=== PATIENT | female | born 1980 | race Two or more races ===

== ENCOUNTER 2024-10-15 08:54 | Outpatient (AMB) | payer BC, SELFPAY ==
[2024-10-15 09:13] VITALS: BP 123/82; PULSE 59; RESP 18; TEMP 36.3; O2SAT 98; BMI 25.8
--- NOTE | 2024-10-15 09:13 | GSCOFFNT_ITS ---
Vital Signs - [facility] 10/15/24 09:13 Height 1.65 m Height Method Stated Weight 70.335 kg Weight Measurement Method Standing Scale BMI 25.8 BP 123/82 Blood Pressure Source Automatic Cuff Blood Pressure Location Left Upper Arm Position Sitting Respiration 18 Pulse 59 L Pulse Source Monitor Temp 97.3 F Temp Source Temporal Artery Scan Pulse Oximetry (%) 98 Oxygen Delivery Method Room Air Med/Allergies Allergies & Medications Allergies acetaminophen (From Vicodin) Allergy (Verified 10/15/24 09:13) hydrocodone (From Vicodin) Allergy (Verified 10/15/24 09:13) Medication Reconciliation albuterol 90 mcg/actuation aerosol inhaler mcg inhalation 10/15/24 [History Confirmed 10/15/24] MA Intake Visit Data Collection New Patient or Established: Established Patient (seen at [facility] within 3 years) Seen by Clinical Staff ONLY (RN/ABHAY): No Reason for Visit:: COLON SX FOLLOW UP Pain Present Currently: No PCP or OBGYN visit in last 3 months: Yes Hx Now: No Do You Feel Safe at Home: Yes Authorities Contacted: N/A Smoking Status Smoking Status: Never smoker Immunization / Flu Flu Vaccine in the Last 12 Months: Yes Flu Vaccine Exclusion Criteria: Already Received Past Medical History Past Medical History RESPIRATORY: Negative Smoking or Smoking Exposure Social History SMOKING STATUS: Smoking status: Never smoker Past Medical History Comments PMH COMMENT: COLONOSCOPY 08/2023 HPI HPI Narrative 44F referred for follow up of AIN. Per her referral pt underwent excision of an anal lesion in 2022 which showed AIN II, and she had a follow up anal pap 08/2023 which showed benign squamous cells and few columnar cells, no dysplasia. She is unable to follow up with the same provider because they no longer accept her insurance. Pt also underwent colonoscopy in 2021 which was negative aside from hemorrhoids. She feels well overall, states her BMs are soft and regular, and she denies any perianal pain, bleeding or itching, and also denies any anorexia or unintentional weight loss PMH: Mild asthma, AIN II PSHx: Excisional biopsy of anal lesion 01/2023, laparoscopic hiatal hernia repair, partial hysterectomy for bleeding/cyst Meds: MVI, albuterol PRN Allergies: Vicodin Family hx: Paternal aunt had colon CA, no known cervical or anal CA Social hx: Nonsmoker ROS Review of Systems Systems Reviewed: All systems reviewed, normal except as documented Objective/Exam General General Appearance: alert, cooperative and well groomed Resp Respiratory exam: Absent respiratory distress Rectal Rectal exam: Present hemorrhoids (small external hemorrhoid, no other abnormalities on inspection. Normal JAMES, anoscopy negative for gross lesions) Assessment & Plan Diagnosis / Problem List (1) AIN grade II: Status: Acute Assessment & Plan: 44F found to have AIN grade II on excision of anal lesion 2022, followed by negative anal pap smear 08/2023, here for follow up with no current symptoms and no palpable/visible lesions on anoscopy. I explained to pt that I unfortunately do not have the equipment to perform an anal pap smear but based on her most recent negative pap smear and according to ASCCP guidelines she should undergo screening in 1-3 years, so by 2026. All questions were answered and pt expressed understanding Office Procedures GNS Level of Care Nursing/Assessment Patient Status: Established Patient Nursing Assessment/Reassesment: Medication Reconciliation, Update PMH in EMR and Vital Signs Coordination of Care: Complex Care and Chronic Disease 1-5, Consent,records obtained, informed consent, Education Simp Pt/Fam, Results/Orders obtained and Staff clarify orders Established Patient Charge Established Patient Point Assignment: 90 Established Patient Point Charge: EP Level 3 (80-115) Patient Portal Questionaires Social History Tobacco History Smoking Status: Never smoker Domestic Abuse History Do You Feel Safe at Home: Yes Review of Systems Report any current symptoms Only answer those that you have currently: Past Medical History Past Medical History Have you ever been diagnosed with any of the following: Respiratory Problems Smoking: No Smoking Exposure: No
== END 2024-10-15 09:42 | disposition home or self-care (01) ==
PROVIDERS: Supervising Provider Surgery; Visit Provider Surgery
DX: K62.82 Dysplasia of anus (principal)
CPT/HCPCS: 99213; G0463